=== PATIENT | male | born 1985 | race Caucasian/White ===

== ENCOUNTER → 2020-09-10 09:23 | Outpatient (CLI) | payer OTHER, SELFPAY ==
[2020-09-12 07:58] LABS: COVID19 Sendout Not Detected (Not Detect)
== END ==
PROVIDERS: PCP Student in an Organized Health Care Education/Training Program; Visit Provider Physician Assistant
DX: Z11.59 Encounter for screening for other viral diseases (principal); J02.9 Acute pharyngitis, unspecified
CPT/HCPCS: 87070; 87077; 87147; 87635

== ENCOUNTER → 2020-10-12 10:21 | Outpatient (CLI) | payer OTHER, SELFPAY ==
[2020-10-12 11:46] LABS: COVID19 -Nasal RAPID Negative (Negative)
== END ==
PROVIDERS: PCP Student in an Organized Health Care Education/Training Program; Visit Provider Physician Assistant
DX: Z11.59 Encounter for screening for other viral diseases (principal); J02.9 Acute pharyngitis, unspecified
CPT/HCPCS: 87070; 87635

== ENCOUNTER → 2021-08-19 11:18 | Outpatient (CLI) | payer OTHER, SELFPAY ==
[2021-08-19 11:57] LABS: COVID19 -Nasal RAPID Negative (Negative)
== END ==
PROVIDERS: PCP Student in an Organized Health Care Education/Training Program; Referring Provider Physician Assistant; Visit Provider Physician Assistant
DX: J02.9 Acute pharyngitis, unspecified (principal); Z20.822 Contact with and (suspected) exposure to COVID-19
CPT/HCPCS: 87070; 87635

== ENCOUNTER → 2022-03-07 09:06 | Outpatient (CLI) | payer OTHER, SELFPAY | PROVIDERS: PCP Student in an Organized Health Care Education/Training Program; Visit Provider Nurse Practitioner Family | DX: J02.9 Acute pharyngitis, unspecified (principal) | CPT/HCPCS: 87070 ==

== ENCOUNTER 2022-03-09 21:36 | Emergency (ER) | payer OTHER, SELFPAY ==
[2022-03-09 21:39] VITALS: BP 165/80; PULSE 87; RESP 16; TEMP 36.4; O2SAT 97; BMI 30.5
--- NOTE | 2022-03-09 22:16 | ED_ITS ---
HPI - Extremity Problem General Chief complaint: Skin/Abscess/Foreign Body Stated complaint: HANDS AND FEET RASH AND NERVE PAIN Time Seen by Provider: 03/09/22 22:06 Source: patient Mode of arrival: Ambulatory Limitations: no limitations History of Present Illness HPI Narrative: Patient is an otherwise healthy 36-year-old male otherwise healthy is here for evaluation of rash on his hands and feet and in his mouth. Is been present for the past couple days and has been worsening during this time. He states that it is itching and is causing his finger tips to become numb. He was seen the walk- in clinic yesterday. Had a rapid strep that was negative. Was placed on amoxicillin. Throat culture was obtained. Is also tested for COVID which was negative. Besides the amoxicillin recently no other new medications. No new exposures. No problems breathing. Related Data Home Medications Medication Instructions Recorded Confirmed cetirizine 10 mg tablet (Zyrtec) 10 mg PO DAILY 05/13/20 03/07/22 Previous Rx's Medication Instructions Recorded montelukast 10 mg tablet 10 mg PO DAILY #90 tab 05/13/20 (Singulair) albuterol sulfate 90 mcg/actuation 2 puff INHALATION Q4-6H PRN #18 11/29/21 aerosol inhaler gram fluticasone propionate 44 1 puff INHALATION BID #10.6 g 11/29/21 mcg/actuation HFA aerosol inhaler amoxicillin 500 mg capsule 500 mg PO BID 10 Days #20 cap 03/07/22 Allergies Allergy/AdvReac Type Severity Reaction Status Date / Time No Known Drug Allergies Allergy Verified 03/07/22 08:52 Review of Systems Constitutional Constitutional: Denies fever(s) ENT Ears, Nose, Mouth, and Throat: Denies throat swelling Cardiovascular Cardiovascular: Denies dyspnea Respiratory Respiratory: Denies dyspnea Integumentary/Breasts Skin/Breast: Reports rash Allergic/Immunologic Allergic/Immunologic: Denies throat swelling Patient History Medical History Environmental allergies Social History Smoking Status: Never smoker Smoking Status: Never smoker Exam Initial Vital Signs Initial Vital Signs: Vital Signs Temperature 97.5 F L 03/09/22 21:39 Pulse Rate 87 03/09/22 21:39 Respiratory Rate 16 03/09/22 21:39 Blood Pressure 165/80 H 03/09/22 21:39 Pulse Oximetry 97 03/09/22 21:39 HENMT Head: normal to inspection and normocephalic Mouth: oral mucosae normal, tongue normal and moist mucous membranes Other HENMT:: patient does have right lesions in his posterior oropharynx with some petechiae of the soft palate. No vesicles noted. No pustules noted. No exudates noted. Resp Effort & Inspection: normal respiratory effort Auscultation: clear to auscultation bilaterally Cardio Rate: regular rate Rhythm: regular rhythm Skin Other: Patient has a well-demarcated nonvesicular nonpustular lesions located on the palms of his hands and soles of his feet. They are darker in color compared to the skin around them. There is no drainage. No crusting. He does have some lesions located on his forearms as well predominant located on the palms of hands soles of feet. Neuro General: patient alert, patient awake and moves all extremities Extrem General: No edema Course Orders Ordered: ED Orders 03/09/22 21:44 Wound Culture and Gram Stain Stat 03/09/22 22:02 Complete Blood Count AUTO DIFF Stat Comprehensive Metabolic Panel Stat Vital Signs Vital signs: Vital Signs - 8 hr 03/09/22 23:19 Pulse Rate 74 Respiratory Rate 16 Blood Pressure 118/78 Pulse Oximetry 99 MDM - Extremity (Nontraumatic) Lab Data Result diagrams: 03/09/22 22:02 03/09/22 22:02 Labs: Lab Results 03/09/22 03/09/22 Range/Units 22:02 22:02 WBC 5.7 (4.5-11.0) X10^3/uL RBC 5.04 (4.5-5.9) X10^6/uL Hgb 14.0 (13.5-17.5) g/dL Hct 39.7 L (41-53) % MCV 78.8 L (80-100) fL MCH 27.7 (26-34) PG MCHC 35.2 (30-36) % RDW 12.7 (11.6-14.8) % Plt Count 203 (150-400) X10^3/uL Neut % (Auto) 59.4 (50-75) % Lymph % (Auto) 21.5 L (25-40) % [place] % (Auto) 13.9 (3-14) % Eos % (Auto) 4.5 H (2-4) % Baso % (Auto) 0.7 (0-2) % Neut # (Auto) 3400 (6565-5295) /uL Lymph # (Auto) 1200 (8377-2682) /uL [place] # (Auto) 800 (0-900) /uL Eos # (Auto) 300 (0-450) /uL Baso # (Auto) 0 (0-100) /uL Sodium 139 (137-145) mmol/L Potassium 3.7 (3.4-5.1) mmol/L Chloride 104 (98-107) mmol/L Carbon Dioxide 25 (22-32) mmol/L BUN 18 (9-20) mg/dL Creatinine 0.84 (0.66-1.25) mg/dL Estimated GFR > 60 (>60) mL/min BUN/Creatinine Ratio 21.4 (6-22) Glucose 122 H (70-100) mg/dL Calcium 9.2 (8.4-10.2) mg/dL Total Bilirubin 0.7 (0.2-1.3) mg/dL AST 35 (17-59) IU/L ALT 41 (<50) IU/L Alkaline Phosphatase 68 (38-126) U/L Total Protein 7.6 (6.3-8.2) g/dL Albumin 4.5 (3.5-5.0) g/dL Globulin 3.1 (1.7-4.1) g/dL Albumin/Globulin Ratio 1.5 (1.0-2.8) MDM Narrative Medical decision making narrative: No respiratory distress. No new exposures. Throat culture from his prior visit shows mixed nargis. He has already had a negative COVID test. He is afebrile. No indication of anaphylaxis. Finding is somewhat consistent with zvya-[id number] disease given the appearance and also the location. He is afebrile. His platelets are unremarkable. Labs unremarkable. Shingles, chickenpox, syphilis, molluscum, erythema multiforme however his skin rash is not consistent with these etiologies. Had a discussion with him regarding this. We will hold on further workup and he was just given instructions on supportive treatment for now. He was given strict return precautions. He expressed understanding and agreement. Discharge Plan Departure Patient Disposition: Home Clinical Impression: Rash, Hand, foot and mouth disease Instructions: Hand, Foot, and Mouth Disease Activity Restrictions/Additional Instructions: You can take Tylenol for any fevers or discomfort. You can use the topical Benadryl like we discussed. If your symptoms worsen if you develop blisters, worsening rash, fevers, inability to tolerate oral intake please return to the emergency department for further evaluation. Prescriptions: No Action amoxicillin 500 mg capsule 500 mg PO BID 10 Days Qty: 20 0RF cetirizine [Zyrtec] 10 mg tablet 10 mg PO DAILY 0RF montelukast [Singulair] 10 mg tablet 10 mg PO DAILY Qty: 90 3RF albuterol sulfate 90 mcg/actuation HFA aerosol inhaler 2 puff INHALATION Q4-6H PRN (Reason: shortness of breath or wheezing) Qty: 18 11RF fluticasone propionate 44 mcg/actuation HFA aerosol inhaler 1 puff inhalation BID Qty: 10.6 11RF Referrals: Cristhian Hilton MD [Primary Care Provider] - Stand Alone Forms: Work Release Note
[2022-03-09 22:24] LABS: Add Manual Diff / Slide Review NO; Basophils Absolute Auto 0 /uL (0-100); Basophils Percent Auto 0.7 % (0-2); Eosinophils Absolute Auto 300 /uL (0-450); Eosinophils Percent Auto 4.5 % (2-4); Hematocrit 39.7 % (41-53); Lymphocytes Absolute Auto 1200 /uL (1100-4500); Lymphocytes Percent Auto 21.5 % (25-40); Mean Corpuscular HGB Conc 35.2 % (30-36); Mean Corpuscular Hemoglobin 27.7 PG (26-34); Mean Corpuscular Volume 78.8 fL (80-100); Monocytes Absolute Auto 800 /uL (0-900); Monocytes Percent Auto 13.9 % (3-14); Neutrophils Absolute Auto 3400 /uL (1500-7000); Neutrophils Percent Auto 59.4 % (50-75); Platelet Count 203 X10^3/uL (150-400); Red Blood Cell Count 5.04 X10^6/uL (4.5-5.9); Red Cell Distribution Width 12.7 % (11.6-14.8); White Blood Cell Count 5.7 X10^3/uL (4.5-11.0)
[2022-03-09 22:30] LABS: Alanine Aminotransferase 41 IU/L (<50); Albumin 4.5 g/dL (3.5-5.0); Albumin Globulin Ratio 1.5 (1.0-2.8); Alkaline Phosphatase 68 U/L (38-126); Aspartate Aminotransferase 35 IU/L (17-59); BUN Creatinine Ratio 21.4 (6-22); Bilirubin Total 0.7 mg/dL (0.2-1.3); Blood Urea Nitrogen 18 mg/dL (9-20); Calcium 9.2 mg/dL (8.4-10.2); Carbon Dioxide 25 mmol/L (22-32); Chloride 104 mmol/L (98-107); Estimated Glomerular Filt Rate > 60 mL/min (>60); Globulin 3.1 g/dL (1.7-4.1); Glucose 122 mg/dL (70-100); HEMOLYSIS 16 (0-50); Potassium 3.7 mmol/L (3.4-5.1); Sodium 139 mmol/L (137-145); Total Protein 7.6 g/dL (6.3-8.2)
[2022-03-09 23:19] VITALS: BP 118/78; PULSE 74; RESP 16; O2SAT 99
== END 2022-03-09 23:20 | disposition home or self-care (01) ==
PROVIDERS: Emergency Provider Emergency Medicine; PCP Student in an Organized Health Care Education/Training Program
DX: B08.4 Enteroviral vesicular stomatitis with exanthem (principal)
CPT/HCPCS: 36415; 80053; 85025; 87070; 87075; 87205; 99283

== ENCOUNTER → 2022-09-17 09:39 | Outpatient (CLI) | payer OTHER, SELFPAY ==
[2022-09-17 10:55] LABS: Influenza A - CEPHEID Flu A NEGATIVE (NEGATIVE); Influenza B - CEPHEID Flu B NEGATIVE (NEGATIVE); Respiratory Syncytial Virus Negative (Negative)
[2022-09-17 10:57] LABS: COVID-19 CEPHEID 4-PLEX PCR Negative (Negative)
== END ==
PROVIDERS: PCP Student in an Organized Health Care Education/Training Program; Visit Provider Physician Assistant Medical
DX: R05.9 Cough, unspecified (principal)
CPT/HCPCS: 0241U; 87070

== ENCOUNTER 2023-07-24 09:10 | Emergency (ER) | payer OTHER, SELFPAY ==
[2023-07-24 09:15] VITALS: BP 144/89; PULSE 64; RESP 14; TEMP 36.3; O2SAT 98; BMI 29.8
--- NOTE | 2023-07-24 09:15 | ED.GENADULT ---
HPI - General Adult General Chief complaint: Extremity Injury, Lower Stated complaint: toe injury Time Seen by Provider: 07/24/23 09:15 Source: patient Mode of arrival: Ambulatory Limitations: no limitations History of Present Illness HPI narrative: 37-year-old male who is here for evaluation of a toe injury to his left foot. While at work yesterday he stated that a piece of equipment fell out of the back of the truck landing on his left foot. Since that time he is had bruising and discomfort with walking. No other injuries from the event. Related Data Home Medications Medication Instructions Recorded Confirmed cetirizine 10 mg tablet (Zyrtec) 10 mg PO DAILY 05/13/20 12/04/22 Previous Rx's Medication Instructions Recorded albuterol sulfate 90 mcg/actuation 2 puff inhalation Q4-6H PRN 12/08/22 aerosol inhaler shortness of breath or wheezing #8.5 grams fluticasone propionate 44 1 puff inhalation BID #10.6 grams 12/08/22 mcg/actuation HFA aerosol inhaler trazodone 50 mg tablet 150 mg PO BEDTIME PRN insomnia #90 12/11/22 tabs Allergies Allergy/AdvReac Type Severity Reaction Status Date / Time No Known Drug Allergies Allergy Verified 07/24/23 09:14 Review of Systems Musculoskeletal Musculoskeletal: Reports system reviewed and no additional complaints, except as documented Integumentary/Breasts Skin/Breast: Reports system reviewed and no additional complaints, except as documented Neurologic Neurologic: Reports system reviewed and no additional complaints, except as documented Patient History Medical History COVID-19 Environmental allergies Social History Smoking Status: Never smoker Smoking Status: Never smoker Exam Initial Vital Signs Initial Vital Signs: Vital Signs Temperature 97.3 F L 07/24/23 09:15 Pulse Rate 64 07/24/23 09:15 Respiratory Rate 14 07/24/23 09:15 Blood Pressure 144/89 H 07/24/23 09:15 Pulse Oximetry 98 07/24/23 09:15 Oxygen Delivery Method Room Air 07/24/23 09:15 HENMT Head: normal to inspection and normocephalic Skin Other: Bruising to the dorsum of the left 2nd toe Extrem Other: Bruising and swelling to the dorsum of the left 2nd toe Course Orders Ordered: ED Orders 07/24/23 09:16 XR foot LT min 3V Stat Vital Signs Vital signs: Vital Signs - 8 hr 07/24/23 09:15 Temperature 97.3 F L Pulse Rate 64 Respiratory Rate 14 Blood Pressure 144/89 H Pulse Oximetry 98 Oxygen Delivery Method Room Air Medical Decision Making Imaging Data Extremity x-ray #1: My Impression: Fracture to the distal end of the proximal phalanx of the left 2nd toe. MDM Narrative Medical decision making narrative: X-ray does show a nondisplaced fracture to the left 2nd toe. Patient is ambulatory. 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 I do recommend that he not run for the next couple weeks. He was given return precautions. He expressed understanding and agreement. Discharge Plan Departure Patient Disposition: Home Clinical Impression: Fracture of toe of left foot Activity Restrictions/Additional Instructions: You can [place] tape the toe to the one next to it like we discussed. I recommend that you place all of your administrative duties on Q intake the next month and a half off. Do not return to the emergency department for any reason. Prescriptions: No Action trazodone 50 mg tablet 150 mg PO BEDTIME PRN (Reason: insomnia) Qty: 90 5RF cetirizine [Zyrtec] 10 mg tablet 10 mg PO DAILY albuterol sulfate 90 mcg/actuation HFA aerosol inhaler 2 puff INHALATION Q4-6H PRN (Reason: shortness of breath or wheezing) Qty: 8.5 11RF fluticasone propionate 44 mcg/actuation HFA aerosol inhaler 1 puff inhalation BID Qty: 10.6 11RF Referrals: Cristhian Hilton MD [Primary Care Provider] - Stand Alone Forms: Patient Portal/API, Work Release Note
--- NOTE | 2023-07-24 09:16 | DI.RAD.S_ITS ---
PROCEDURE: XR FOOT LT MIN 3V INDICATIONS: L 2nd toe injury TECHNIQUE: 3 views of the foot were acquired. COMPARISON: None. FINDINGS: Bones: Question nondisplaced fracture of the proximal phalanx of the 2nd toe extending to the PIP joint. No suspicious bony lesions. Soft tissues: No tibiotalar joint effusion. Achilles tendon appears normal. IMPRESSION: Question nondisplaced fracture proximal phalanx of 2nd toe extending to the PIP joint. This is not definite. Recommend correlation with clinical exam. Dictated by: Alvin Smalls M.D. on 07/24/2023 at 9:39 Approved by: Alvin Smalls M.D. on 07/24/2023 at 9:46
== END 2023-07-24 09:25 | disposition home or self-care (01) ==
PROVIDERS: Emergency Provider Emergency Medicine; PCP Student in an Organized Health Care Education/Training Program
DX: S92.515A Nondisplaced fracture of proximal phalanx of left lesser toe(s), initial encounter for closed fracture (principal); W22.8XXA Striking against or struck by other objects, initial encounter; Y99.0 Civilian activity done for income or pay
CPT/HCPCS: 73630; 99281; 99283

== ENCOUNTER → 2024-02-06 07:17 | Outpatient (CLI) | payer OTHER, SELFPAY ==
--- NOTE | 2024-02-06 | DI.US.S_ITS ---
PROCEDURE: US ABDOMEN COMPLETE INDICATIONS: Fatty (change of) liver TECHNIQUE: Real-time scanning was performed of the abdominal and retroperitoneal organs, with image documentation. COMPARISON: None. FINDINGS: Liver: Increased liver echogenicity, likely mild hepatic steatosis. Gallbladder: Unremarkable. Biliary ducts: Intrahepatic bile ducts are non-dilated. Extrahepatic bile duct caliber measures 6 mm. Normal is 6-7 mm or less in diameter, or 10 mm or less post-cholecystectomy. Pancreas: Visualized portions of the pancreas are sonographically normal. Spleen: Spleen is normal in size and homogeneous in echotexture. Kidneys: Kidneys are normal in size and echotexture. Right kidney measures 11.8 cm long; left kidney measures 11.9 cm long. No hydronephrosis or nephrolithiasis. No solid masses. Aorta: Visualized aorta is normal in caliber at less than 3 cm. Iliacs: Proximal common iliac arteries are normal in caliber at less than 2.5 cm. IVC: Intrahepatic inferior vena cava is patent. Miscellaneous: No free abdominal fluid. IMPRESSION: Echogenic liver, likely mild hepatic steatosis. Dictated by: Jas Flanagan M.D. on 02/06/2024 at 9:15 Approved by: Jas Flanagan M.D. on 02/06/2024 at 9:20
--- NOTE | 2024-02-06 | DI.US.S_ITS ---
PROCEDURE: US THYROID INDICATIONS: Thyroid nodule TECHNIQUE: Real-time scanning was performed of the thyroid gland, with image documentation. COMPARISON: None. FINDINGS: Thyroid: Right lobe measures 5.5 x 1.9 x 1.7 cm. Left lobe measures 5 x 1.4 x 1.3 cm. Isthmus is 0.3 cm thick. Echotexture is homogeneous. Nodule number: 1 Location: Right mid Size: 1.1 x 0.7 x 0.9 cm. Composition: Solid Echogenicity: Hypoechoic Shape: wider than tall. Margins: Smooth Echogenic foci: None Total points: 3 ACR TI-RADS category: 3 IMPRESSION: Right mid TIRADS 3 nodule. Based on size, no dedicated follow-up warranted. ACR TI-RADS definitions and recommendations: TI-RADS 1 (benign): 0 points. FNA not needed. TI-RADS 2 (not suspicious): 2 points. FNA not needed. TI-RADS 3 (mildly suspicious): 3 points. * FNA if 2.5 cm or larger, follow up if 1.5 cm or larger (at 1, 3, and 5 years). TI-RADS 4 (moderately suspicious): 4-6 points. * FNA if 1.5 cm or larger, follow up if 1 cm or larger (at 1, 2, 3, and 5 years). TI-RADS 5 (highly suspicious): 7 points or more. * FNA if 1 cm or larger, follow up if 0.5 cm or larger (every year for 5 years). Dictated by: Tamanna Velásquez M.D. on 02/06/2024 at 9:28 Approved by: Tamanna Velásquez M.D. on 02/06/2024 at 9:30
== END ==
LOC: US 07:18
PROVIDERS: PCP Family Medicine; Referring Provider Family Medicine; Visit Provider Family Medicine
DX: K76.0 Fatty (change of) liver, not elsewhere classified (principal); E04.1 Nontoxic single thyroid nodule
CPT/HCPCS: 76536; 76700